=== PATIENT | male | born 1950 | race Caucasian/White ===

== ENCOUNTER 2017-01-31 21:31 | Observation (INO) ==
--- NOTE | 2017-01-31 21:51 | Emergency Department Note ---
Disposition Clinical Impression: Generalized seizure, Hyponatremia Disposition: Admitted As Inpatient Condition: Fair Referrals: Jayla Almanzar CNP [Primary Care Provider] - () Forms: ED Satisfaction Letter Seizure HPI - General Chief Complaint: ED Seizure Stated Complaint: seizure like activity Time Seen by Provider: 01/31/17 21:41 Source: patient, family, EMS Limitations: no limitations Nursing Notes Reviewed: Yes Vital Signs Reviewed: Yes - History of Present Illness HPI Narrative: Patient was heard by his with a loud abnormal breathing pattern. She states she is in the other room and he was in a chair at his computer. She found him leaning back in the chair with his eyes closed, neck extended, arms and legs extended and unresponsive. She did not see any tonic or clonic motion. He did not have incontinence or any tongue biting. He has had a history of previous seizure associated with some cancer treatment as well as with hyponatremia in the past. She called 911 and states he was coming around by the time of their arrival. He had seemed to be somewhat postictal. He has been alert and interactive for the squad for transport. The patient has no recall of anything that happened up and he felt tingling of his left hand. The patient reports that he now "just feels a little week". His volunteers that he is "okay now" and that he is basically back to his baseline. The patient denies any recent change in medications. He denies visual changes, nausea, vomiting. He has not had numbness, tingling or weakness. He denies any recent injury or fall but did fall in a [place] about 3 weeks ago. He denies any chest pain or palpitations. He does get screening CT chest and neck every 3 months as follow-up on his cancer. The studies were reported to be normal in November. Pt Subjective Complaint: seizure Onset (ago): [employer] Description of Episode: loss of consciousness, post-event confusion -: minutes(s) Witnessed: yes - by bystander Associated trauma secondary to event: No Seizure History: known seizure disorder Place: home Possible Precipitating Event: none Associated symptoms: Denies: chest pain, confusion, cough, diaphoresis, fever/ chills, loss of appetite, malaise, rash, shortness of breath, syncope, weakness Pain Scale: 0 Treatments prior to arrival: none - Related Data Home Medications Medication Instructions Recorded Confirmed Aspirin [Adult Low Dose Aspirin EC] 81 mg PO DAILY 10/11/15 01/31/17 Lactose-Reduced Food [Ensure 1 bottle PO BID 11/08/15 01/31/17 Complete] Previous Rx's Medication Instructions Recorded Folic Acid 1 mg PO DAILY #90 capsule 11/24/16 LORazepam [Ativan] 1 mg PO BID PRN #90 tablet 11/24/16 Levothyroxine [Synthroid] 75 mcg PO 0630 #30 tablet 11/24/16 Lisinopril [Zestril] 20 mg PO DAILY #90 tablet 11/24/16 Sertraline [Zoloft] 100 mg PO HS #90 tablet 11/24/16 amLODIPine [Norvasc] 5 mg PO DAILY #30 tablet 11/24/16 Famotidine [Pepcid] 20 mg PO BID #60 tablet 12/25/16 Allergies Allergy/AdvReac Type Severity Reaction Status Date / Time No Known Allergies Allergy Verified 01/31/17 21:56 All systems ED: reviewed and negative except as stated. Past Medical History - Past Medical History Attestation: Yes The following information was validated with the patient. Source: patient, obtained from family, nursing notes reviewed Medical history: Reports: arthritis, cancer, coronary artery disease, DVT, pulmonary embolus, renal disease Surgical history: Reports: carotid endarterectomy Psychiatric history: Reports: depression - Social History Smoking Status: Current every day smoker Smokeless Tobacco Status: No Alcohol use: Reports: heavy Drug use: Reports: none Physical Exam - General Limitations: no limitations General appearance: alert, in no apparent distress - Head Head exam: atraumatic, normocephalic, normal inspection - Eye Eye exam: Present: normal appearance, PERRL, EOMI. Absent: scleral icterus, conjunctival injection - ENT ENT exam: normal exam, normal oropharynx, mucous membranes moist - Neck Neck exam: Present: normal inspection, full ROM, trachea midline - Chest Chest inspection: Present: normal inspection, symmetric chest wall rise - Respiratory Respiratory exam: Present: normal lung sounds bilaterally. Absent: respiratory distress, wheezes, prolonged expiratory phase - Cardiovascular Cardiovascular exam: Present: regular rate, normal rhythm, normal heart sounds. Absent: tachycardia - Abdominal Exam Abdominal exam: Present: soft, Non-Tender, normal bowel sounds. Absent: tenderness, distention, guarding, rebound, rigidity - Extremities Exam Extremities exam: Present: normal inspection, full ROM, normal capillary refill. Absent: tenderness, pedal edema, calf tenderness - Expanded Lower Extremity Exam Neurovascular/Tendon exam: Present: normal capillary refill. Absent: motor deficit, sensory deficit, tendon deficit Gait: observed and normal - Back Exam Back exam: Present: normal inspection, full ROM. Absent: tenderness, CVA tenderness (R), CVA tenderness (L), vertebral tenderness - Neurological Exam Neurological exam: Present: alert, oriented X3, CN II-XII intact, normal gait, reflexes normal. Absent: motor sensory deficit - Psychiatric Psychiatric exam: Present: normal affect, normal mood. Absent: anxious - Skin Skin exam: Present: warm, dry, intact, normal color. Absent: diaphoresis, pallor Course Course Narrative: 2141: Discussed at Length with the Patient and Her . He Will Be Given a Dose of Ativan Orally and Will Have a Basic Lab Evaluation and a CT Head Performed. 2239: All laboratory and imaging results are discussed with the patient and family. The patient is adamant that he will be going home. He does not think he took his own dose of Ativan this evening. I discussed the need to follow-up also with family doctor as he may need neurology referral and outpatient EEG. I have discussed with him staying overnight with a saline infusion and a recheck of his laboratory in the morning. He would be able to have a row checks and availability of medication should he have recurrence of seizure. At this time he is refusing to stay and he has talking this over with family in the room. 2249: The patient's family has convinced the patient to stay for neurologic checks and some infusion of saline. Dr. Rivera has been called to assist the ongoing care of this patient inpatient. 2314: The patient's has provided additional information. He did have the hyponatremic seizure in the past also associated with possible alcohol withdrawal. He does drink heavily. Assessment taken to 32 ounce beer, whiskey and vodka each day. I have added withdrawal precautions to his admission orders as well as ordered a baseline alcohol level and hepatic functions. Patient remains in stable condition. Vital Signs Temperature 99.1 F 01/31/17 21:35 Pulse Rate 76 01/31/17 21:35 Respiratory Rate 16 01/31/17 21:35 Blood Pressure 137/69 01/31/17 21:35 O2 Sat by Pulse Oximetry 96 01/31/17 21:35 Temperature 99.1 F 01/31/17 21:35 Pulse Rate 62 01/31/17 23:08 Respiratory Rate 20 01/31/17 23:08 Blood Pressure 125/68 01/31/17 23:08 O2 Sat by Pulse Oximetry 96 01/31/17 23:08 Oxygen Delivery Oxygen Delivery Room Air Seizure - Differential Diagnosis Likely: generalized seizure - Medical Records Medical records reviewed: Yes I reviewed the patient's medical records. - Lab Data Lab results reviewed: Yes I reviewed the patient's lab results. Result diagrams: 01/31/17 21:59 01/31/17 21:59 Lab Results 01/31/17 01/31/17 01/31/17 Range/Units 21:59 21:59 21:59 WBC 5.2 (4.3-11.1) K/mcL RBC 3.22 L (4.19-5.50) M/mcL Hgb 11.2 L (12.9-16.9) g/dL Hct 30.6 L (37.5-50.1) % MCV 95.0 (83.0-100.0) fL MCH 34.8 H (28.0-33.3) pg MCHC 36.6 H (31.6-35.5) g/dL RDW 12.0 (11.5-14.5) % Plt Count 203 (140-400) K/mcL MPV 9.7 (9.4-12.4) fL Immature Gran % 1.0 (0-4) % Seg Neutrophils % 74.3 % Lymphocytes % 11.3 % Monocytes % 11.3 % Eosinophils % 1.3 % Basophils % 0.8 % Neutrophils # 3.9 (1.6-8.9) K/mcL Lymphocytes # 0.6 (0.6-4.6) K/mcL Monocytes # 0.6 (0.0-1.3) K/mcL Eosinophils # 0.1 (0.0-0.6) K/mcL Basophils # 0.0 (0.0-0.2) K/mcL PT 10.5 (9.4-12.1) Seconds INR 1.0 APTT 32.4 (26.0-36.0) Seconds Sodium 126 L (136-145) mEq/L Potassium 3.7 (3.5-4.5) mEq/L Chloride 91 L (98-109) mEq/L Carbon Dioxide 16 L (19-29) mEq/L BUN 13 (8-26) mg/dL Creatinine 1.04 (0.72-1.25) mg/dL Est GFR ( Amer) > 60 (> 60) Est GFR (Non-Af Amer) > 60 (> 60) BUN/Creatinine Ratio 13 (6-26) Glucose 82 (70-99) mg/dL Calculated Osmolality 261 L (280-300) Calcium 9.1 (8.6-10.8) mg/dL - Radiology Data Radiology results reviewed: Yes I reviewed the patient's radiology results. Impressions Head CT 01/31/17 21:46 IMPRESSION: No acute intracranial abnormality. Otherwise stable head CT. D/ / Joao Torres MD / Joao Torres MD Interpreting Provider: Joao Torres MD
[2017-01-31] MEDS ORDERED: *HR* LORazepam 1 MG TABLET PO ONE (21:55)
[2017-01-31 22:05] LABS: Basophils % 0.8 %; Eosinophils # 0.1 K/mcL (0.0-0.6); Eosinophils % 1.3 %; Hematocrit 30.6 % (37.5-50.1); Hemoglobin 11.2 g/dL (12.9-16.9); Lymphocytes # 0.6 K/mcL (0.6-4.6); Lymphocytes % 11.3 %; Mean Corpuscular HGB Conc 36.6 g/dL (31.6-35.5); Mean Corpuscular Hemoglobin 34.8 pg (28.0-33.3); Mean Platelet Volume 9.7 fL (9.4-12.4); Monocytes # 0.6 K/mcL (0.0-1.3); Monocytes % 11.3 %; Neutrophils # 3.9 K/mcL (1.6-8.9); Platelet Count 203 K/mcL (140-400); Red Blood Count 3.22 M/mcL (4.19-5.50); Segmented Neutrophils % 74.3 %
[2017-01-31 22:10] LABS: Prothrombin Time 10.5 Seconds (9.4-12.1)
[2017-01-31 22:13] LABS: Activated Partial Thrombo Time 32.4 Seconds (26.0-36.0)
[2017-01-31 22:20] LABS: BUN/Creatinine Ratio 13 (6-26); Blood Urea Nitrogen 13 mg/dL (8-26); Calcium 9.1 mg/dL (8.6-10.8); Carbon Dioxide 16 mEq/L (19-29); Chloride 91 mEq/L (98-109); Glucose 82 mg/dL (70-99); Osmolality,Calculated 261 (280-300); Potassium 3.7 mEq/L (3.5-4.5); Sodium 126 mEq/L (136-145); eGFR For African Americans > 60 (> 60); eGFR For Non-African Americans > 60 (> 60)
[2017-01-31] MEDS ORDERED: 0.9 % Sodium Chloride 1,000 ML IVC SCH (23:00)
[2017-01-31 23:37] LABS: Albumin 3.6 g/dL (3.5-5.0); Albumin/Globulin Ratio 1.2 (1.1-2.2); Bilirubin,Direct 0.1 mg/dL (0.0-0.5); Bilirubin,Indirect 0.2 mg/dL (0.0-1.2); Bilirubin,Total 0.3 mg/dL (0.2-1.2); Globulin 2.9 g/dL (2.4-3.5); Total Protein 6.5 g/dL (6.0-8.3)
[2017-01-31] MEDS: 0.9 % Sodium Chloride 1,000 ML IVC SCH (23:38)
[2017-02-01] MEDS ORDERED: Ondansetron 4 MG/2 ML VIAL IVP PRN (00:38)
[2017-02-01] MEDS ORDERED: *HR* LORazepam 1 MG TABLET PO PRN (00:38)
[2017-02-01] MEDS ORDERED: Naloxone 0.4 MG/ML INJ IVP PRN (00:38)
[2017-02-01] MEDS ORDERED: *HR* LORazepam 2 MG/ML VIAL IVP PRN (00:38)
[2017-02-01 08:50] VITALS: BP 142/74
[2017-02-01] MEDS ORDERED: Thiamine (B-1) 100 MG TABLET PO SCH (09:00)
[2017-02-01] MEDS ORDERED: Vitamin B Complex/Vit C/Vit E 1 EACH TABLET PO SCH (09:00)
[2017-02-01] MEDS ORDERED: Folic Acid 1 MG TABLET PO SCH ×2 (09:00)
[2017-02-01] MEDS ORDERED: Famotidine 20 MG TABLET PO SCH (09:00)
[2017-02-01] MEDS ORDERED: amLODIPine 5 MG TABLET PO SCH (09:00)
[2017-02-01] MEDS ORDERED: NON-FORMULARY MEDICATION 1 EACH EACH (Lactose-Reduced Food [Ensure Complete] 1 BOTTLE) PO SCH (09:00)
[2017-02-01] MEDS ORDERED: Lisinopril 20 MG TABLET PO SCH (09:00)
[2017-02-01] MEDS ORDERED: Aspirin Enteric Coated 81 MG Tablet PO SCH (09:00)
[2017-02-01 09:01] LABS: BUN/Creatinine Ratio 9 (6-26); Blood Urea Nitrogen 8 mg/dL (8-26); Calcium 9.2 mg/dL (8.6-10.8); Carbon Dioxide 23 mEq/L (19-29); Chloride 97 mEq/L (98-109); Glucose 99 mg/dL (70-99); Osmolality,Calculated 272 (280-300); Potassium 4.1 mEq/L (3.5-4.5); Sodium 132 mEq/L (136-145); eGFR For African Americans > 60 (> 60); eGFR For Non-African Americans > 60 (> 60)
[2017-02-01] MEDS: 0.9 % Sodium Chloride 1,000 ML IVC SCH (09:03)
--- NOTE | 2017-02-01 12:55 | Internal Med History&Physical ---
Date of Encounter: 02/01/17 Time of Encounter: 12:25 Assessment and Plan (1) Syncope Current visit: Yes Status: Acute Etiology undetermined. I explained to the patient and his I was not convinced that he had a seizure. He has had no previous similar episodes and feels back to his baseline now. He wishes to be discharged home. Qualifiers: Syncope type: unspecified Qualified Code(s): R55 - Syncope and collapse (2) Hyponatremia Current visit: No Status: Acute Sodium has improved to 132. Internal Medicine - H&P: HPI Chief complaint: Syncope Admitted From: Home Plans for Post Hospital Care: Home History of present illness: Mr. Diaz is a 66 year old male who was brought to emergency room after having a syncopal episode at home. His states she heard a moaning noise in the next room where he had been sitting playing a video game. She went to check on him and found him unresponsive and slid down in the chair. She had seen him 15 minutes earlier and he was asymptomatic. She states she found him moaning but gradually became more arousable. There was no loss of bowel or bladder continence. She observed no unusual posturing or jerking. The squad was called and he was brought to emergency room. He was evaluated and admitted to [facility] floor for ongoing care needs. He states he feels back to his baseline and wishes to be discharged home. He denies previous similar episodes of syncope or near syncope. He had a seizure January 2013 associated with sodium level of 119. He has had no further seizures. He has not had large distribution strokes or other neurologic problems. He drinks at least 4 cans of beer daily. Past Med Surg Social Fam HX - Past Medical History Medical history: arthritis, cancer, coronary artery disease, DVT, pulmonary embolus, renal disease, seizures Psychiatric history: depression - Past Surgical History Surgical History: carotid endarterectomy - Social History Smoking Status: Current every day smoker Packs per day: 0.5 Smokeless Tobacco Status: No Alcohol use: heavy Drug use: none Internal Medicine - H&P: Meds Aspirin [Adult Low Dose Aspirin EC] 81 mg PO DAILY 10/11/15 [History] Lactose-Reduced Food [Ensure Complete] 1 bottle PO BID 11/08/15 [History] Folic Acid 1 mg PO DAILY #90 capsule 11/24/16 [Rx] LORazepam [Ativan] 1 mg PO BID PRN #90 tablet 11/24/16 [Rx] Levothyroxine [Synthroid] 75 mcg PO 0630 #30 tablet 11/24/16 [Rx] Lisinopril [Zestril] 20 mg PO DAILY #90 tablet 11/24/16 [Rx] Sertraline [Zoloft] 100 mg PO HS #90 tablet 11/24/16 [Rx] amLODIPine [Norvasc] 5 mg PO DAILY #30 tablet 11/24/16 [Rx] Famotidine [Pepcid] 20 mg PO BID #60 tablet 12/25/16 [Rx] Allergies No Known Allergies Allergy (Verified 01/31/17 21:56) All Systems PM: A 10-system review of systems was performed and is negative for pertinent findings except as documented above in the HPI. Review of systems: Gen.: His weight has been stable past few months Cardiovascular: He has history of hypertension. He has known ASPVD and had left leg endarterectomy procedure and right leg arterial stent placed in the past. He has had right carotid endarterectomy. He had a DVT/pulmonary embolism 1980. He does not get chest pain on exertion. He denies [place] or heart failure. Respiratory: He has smoked since age 14 up to 2 packs per day. He does not wear home oxygen has not had test for COPD. GI: He denies disorders of his liver gallbladder or exocrine pancreas : Denies hematuria or dysuria or kidney stones Neurologic: As per history of present illness Endocrine: He has hypothyroidism but no known diabetes or hyperlipidemia Hematology/oncology: He was diagnosed with throat cancer September 2015. He underwent XRT and chemotherapy and has been told he is cancer free. He was found to have anemia in emergency room. Psychiatric: He takes Ativan and Zoloft but denies specific diagnosis of anxiety or depression. [place] skeletal: He has degenerative disc disease and occasional low back and knee pain. He does not have known gout. He had a mandible fracture from a fall in 1980. - Constitutional Vitals: Temp Pulse Resp BP Pulse Ox 98.3 F 59 16 142/74 97 02/01/17 07:19 02/01/17 07:19 02/01/17 07:19 02/01/17 07:19 02/01/17 07:19 Exam: Gen.: He is a well-developed well-nourished male who appears in no acute distress at present time HEENT: Head is atraumatic and normocephalic. Eyes: EOMI. There is no scleral icterus. Mouth: Mucosa is moist. Neck: He has healed scar in his right neck area from previous surgery. There is no thyromegaly or adenopathy noted. Heart: Regular without murmurs gallops or ectopics Lungs: No wheezes or crackles heard. Abdomen: Soft and nontender. No masses or guarding are noted. Extremities: There is no cyanosis edema or clubbing noted. Dorsalis pedis and posterior tibial pulses are trace to 1+ palpable bilaterally. Neurologic: Mental status: He is talkative and a good historian. Cranial nerves : Smile is symmetric. Forehead wrinkles bilaterally. Tongue protrudes midline. EOMI. Motor: There is no pronator drift. Cerebellar: Finger to nose is intact bilaterally. Skin: Warm and dry Internal Med - H&P Results - Labs CBC & Chem 7: 01/31/17 21:59 02/01/17 08:40 Labs: [facility] 02/01/17 08:40 Sodium 132 L Potassium 4.1 Chloride 97 L Carbon Dioxide 23 BUN 8 Creatinine 0.87 Glucose 99 Calcium 9.2 - VTE Documentation of Mechanical Device: Graduated compression elastic hosiery
--- NOTE | 2017-02-01 13:09 | Discharge Summary ---
Date of Encounter: 02/01/17 Time of Encounter: 12:25 - Discharge Diagnosis (1) Syncope Priority: Primary Status: Acute Qualifiers: Syncope type: unspecified Qualified Code(s): R55 - Syncope and collapse (2) Hyponatremia Priority: Secondary Status: Acute - Discharge Medications Home Medications: Aspirin [Adult Low Dose Aspirin EC] 81 mg PO DAILY 10/11/15 [History] Lactose-Reduced Food [Ensure Complete] 1 bottle PO BID 11/08/15 [History] Folic Acid 1 mg PO DAILY #90 capsule 11/24/16 [Rx] LORazepam [Ativan] 1 mg PO BID PRN #90 tablet 11/24/16 [Rx] Levothyroxine [Synthroid] 75 mcg PO 0630 #30 tablet 11/24/16 [Rx] Lisinopril [Zestril] 20 mg PO DAILY #90 tablet 11/24/16 [Rx] Sertraline [Zoloft] 100 mg PO HS #90 tablet 11/24/16 [Rx] amLODIPine [Norvasc] 5 mg PO DAILY #30 tablet 11/24/16 [Rx] Famotidine [Pepcid] 20 mg PO BID #60 tablet 12/25/16 [Rx] Allergies/Adverse Reactions: Allergies No Known Allergies Allergy (Verified 01/31/17 21:56) Date of admission: 02/01/17 00:13 Primary care physician: Jayla Almanzar CNP - Patient Status Disposition: Home, Self-Care Condition: Fair Functional capacity at discharge: independent ambulation Overall status at discharge: patient is progressing back to baseline - Discharge Instructions Follow Up With: Jayla Almanzar CNP [Primary Care Provider] - 1 week - Diet and Activity Activity: resume usual activities as tolerated Diet: advance to your usual diet Hospital course: Mr. Diaz is a 66 year old male who was brought to emergency room after having a syncopal episode at home. His states she heard a moaning noise in the next room where he had been sitting playing a video game. She went to check on him and found him unresponsive and slid down in the chair. She had seen him 15 minutes earlier and he was asymptomatic. She states she found him moaning but gradually became more arousable. There was no loss of bowel or bladder continence. She observed no unusual posturing or jerking. The squad was called and he was brought to emergency room. He was evaluated and admitted to [facility] for ongoing care needs. Initial orders were written by the emergency room physician. I saw him the afternoon of February 01 and performed the history physical and discharge. He had no further syncopal or near-syncopal episodes. He felt back to his baseline when I saw him and he wished to be discharged home. Repeat labs February 01 showed sodium improved to 132. His carbon dioxide level had normalized to 23. He was instructed to follow with his PCP Jayla Almanzar CNP within 1 week. I encouraged him strongly to discontinue alcohol and tobacco use. - Time Spent with Patient Total time spent providing and/or coordinating discharge services: - Constitutional Vitals: Temp Pulse Resp BP Pulse Ox 98.3 F 59 16 142/74 97 02/01/17 07:19 02/01/17 07:19 02/01/17 07:19 02/01/17 07:19 02/01/17 07:19 - VTE Documentation of Mechanical Device: Graduated compression elastic hosiery
== END 2017-02-01 13:32 | disposition home or self-care (01) ==
LOC: EMEROOPIK 21:31 → INPPIK 21:31
PROVIDERS: ADMIT Internal Medicine; ATTEND Internal Medicine

== ENCOUNTER 2018-11-29 12:36 | Observation (INO) ==
--- NOTE | 2018-11-29 12:39 | Emergency Department Note ---
Disposition Clinical Impression: Acute renal insufficiency, Hyponatremia, Generalized weakness Right lower lobe pneumonia Qualifiers: Pneumonia type: due to unspecified organism Qualified Code(s): J18.1 - Lobar pneumonia, unspecified organism Disposition: Admitted As Inpatient Condition: Fair Referrals: Ruperto Dong DO [Primary Care Provider] - Forms: ED Satisfaction Letter URI/Sore Throat HPI - General Chief Complaint: ED Upper Respiratory Infection Stated Complaint: Cough for three weeks . Fever today Time Seen by Provider: 11/29/18 12:47 Source: patient, family Mode of arrival: private vehicle Limitations: no limitations Nursing Notes Reviewed: Yes Vital Signs Reviewed: Yes - History of Present Illness HPI Narrative: Patient reports that he has had a cough for about 3 weeks. This started after he had a routine doctor's appointment. Cough has been productive of some white phlegm. He denies any dyspnea or dyspnea on exertion. Congestion seems a little worse at night. Today he was in bed and covered up and appeared that his forehead was sweaty. He checked his temperature and had a reading of 100.8. The decision was made to come to the emergency department at that time. He has not been having chest pain beyond he says some right lateral chest discomfort with coughing. Denies shortness of breath, wheezing or any lower extremity swelling or pains. He said some weakness and a loss of appetite. He has had decreased oral intake for couple days. He does not note any specific ill exposures. Denies abdominal pain, nausea or diarrhea. His was concerned of possible pneumonia. Pt Subjective Complaint: fever, cough Onset (ago): week(s) (3) Duration: gradually worsening Severity: moderate Improves with: rest Worsens with: night If sputum, description: other (White) Associated symptoms: Reports: fever, chills, diaphoresis, cough, chest pain ( Right side with cough). Denies: voice changes, myalgias, headache, rhinorrhea, nasal congestion, sore throat, stiff neck, shortness of breath, abdominal pain, nausea, vomiting, diarrhea, dysuria, rash, epistaxis, ear pain Treatments prior to arrival: "cold medicine" - Related Data Home Medications Medication Instructions Recorded Confirmed Aspirin [Adult Low Dose Aspirin EC] 81 mg PO DAILY 10/11/15 06/15/18 LORazepam [Ativan] 1 mg PO DAILY 09/14/17 06/15/18 Metoprolol [Lopressor] 25 mg PO BID 06/15/18 06/15/18 Previous Rx's Medication Instructions Recorded Folic Acid 1 mg PO DAILY #90 capsule 11/24/16 Lisinopril [Zestril] 20 mg PO DAILY #90 tablet 11/24/16 Famotidine [Pepcid] 20 mg PO BID #60 tablet 12/25/16 Levothyroxine [Synthroid] 75 mcg PO 0630 #30 tablet 07/23/17 Allergies Allergy/AdvReac Type Severity Reaction Status Date / Time No Known Allergies Allergy Verified 12/14/17 10:13 All systems ED: reviewed and negative except as stated. URI PMH - Past Medical History Medical history: Reports: arthritis, cancer (Head and neck), coronary artery disease, DVT, hypertension, peripheral artery disease, pulmonary embolus, renal disease, seizures Surgical history: Reports: carotid endarterectomy, other (Infusion port) Psychiatric history: Reports: depression - Social History Smoking Status: Current every day smoker Alcohol use: Reports: heavy Drug use: Reports: none Physical Exam - General Limitations: no limitations General appearance: alert, in no apparent distress - Head Head exam: atraumatic, normocephalic, normal inspection - Eye Eye exam: Present: normal appearance, PERRL, EOMI. Absent: conjunctival injection - ENT ENT exam: normal exam, normal oropharynx, mucous membranes moist - Neck Neck exam: Present: normal inspection, full ROM, trachea midline - Chest Chest inspection: Present: normal inspection, symmetric chest wall rise - Respiratory Respiratory exam: Present: normal lung sounds bilaterally. Absent: respiratory distress, wheezes, accessory muscle use, prolonged expiratory phase - Cardiovascular Cardiovascular exam: Present: regular rate, normal rhythm, normal heart sounds. Absent: tachycardia - Abdominal Exam Abdominal exam: Present: soft, Non-Tender, normal bowel sounds. Absent: tenderness, distention, guarding, rebound, rigidity - Extremities Exam Extremities exam: Present: normal inspection, full ROM, normal capillary refill. Absent: tenderness, pedal edema, calf tenderness - Expanded Lower Extremity Exam Neurovascular/Tendon exam: Present: normal capillary refill. Absent: motor deficit, sensory deficit, tendon deficit Gait: observed and normal - Neurological Exam Neurological exam: Present: alert, oriented X3 - Psychiatric Psychiatric exam: Present: normal affect, normal mood - Skin Skin exam: Present: warm, dry, intact, normal color. Absent: cyanosis, diaphoresis, pallor Course Course Narrative: 1335: Care is been discussed with Dr. Reyes. Given the patient's hyponatremia, renal insufficiency and pneumonia, he does request he be observed in the hospital. He agreed the patient will be likely to be against this and he will follow-up in the office if he refuses admission. A page has been placed to Dr. Rivera for observation. 1400: Care has been discussed with Dr. Rivera. Verbal orders have been obtained for the patient's admission. We are waiting placement to a bed on the floor prior to taking him to inpatient care. Vital Signs Temperature 98.8 F 11/29/18 12:38 Pulse Rate 88 11/29/18 12:38 Respiratory Rate 18 11/29/18 12:38 Blood Pressure 124/72 11/29/18 12:38 O2 Sat by Pulse Oximetry 91 11/29/18 12:38 Temperature 98.8 F 11/29/18 12:38 Pulse Rate 88 11/29/18 12:38 Respiratory Rate 18 11/29/18 12:38 Blood Pressure 124/72 11/29/18 12:38 O2 Sat by Pulse Oximetry 91 11/29/18 12:38 Oxygen Delivery Oxygen Delivery Room Air Upper Respiratory Infection - Differential Diagnosis Differential Diagnosis: Likely: upper respiratory infection, other viral infection, bronchitis, pneumonia - Lab Data Lab results reviewed: Yes I reviewed the patient's lab results. Result diagrams: 11/29/18 13:04 11/29/18 13:04 Lab Results 11/29/18 11/29/18 Range/Units 13:04 13:04 WBC 18.1 H (4.3-11.1) K/mcL RBC 3.47 L (4.19-5.50) M/mcL Hgb 12.4 L (12.9-16.9) g/dL Hct 34.7 L (37.5-50.1) % MCV 100.0 (83.0-100.0) fL MCH 35.7 H (28.0-33.3) pg MCHC 35.7 H (31.6-35.5) g/dL RDW 11.5 (11.5-14.5) % Plt Count 323 (140-400) K/mcL MPV 9.3 L (9.4-12.4) fL Immature Gran % 1.8 (0-4) % Seg Neutrophils % 88.3 % Lymphocytes % 2.0 % Monocytes % 7.3 % Eosinophils % 0.0 % Basophils % 0.6 % Neutrophils # 16.0 H (1.6-8.9) K/mcL Lymphocytes # 0.4 L (0.6-4.6) K/mcL Monocytes # 1.3 (0.0-1.3) K/mcL Eosinophils # 0.0 (0.0-0.6) K/mcL Basophils # 0.1 (0.0-0.2) K/mcL Sodium 123 L (136-145) mEq/L Potassium 3.7 (3.5-5.1) mEq/L Chloride 84 L (98-107) mEq/L Carbon Dioxide 30 H (23-29) mEq/L BUN 38 H (8-23) mg/dL Creatinine 1.50 H (0.70-1.30) mg/dL Est GFR ( Amer) 57 L (> 60) Est GFR (Non-Af Amer) 47 L (> 60) BUN/Creatinine Ratio 25 (6-26) Glucose 109 H (70-105) mg/dL Calculated Osmolality 266 L (280-300) Calcium 9.4 (8.6-10.3) mg/dL - Radiology Data Radiology results reviewed: Yes I reviewed the patient's radiology results. Single view chest x-rays performed. This shows a consolidated infiltrate in the right middle lobe and other patchy area in the right lower lobe. Does see evidence for pneumothorax, heart failure or effusion. Cardiac silhouette appears normal. This is on my interpretation. Impressions Chest X-Ray 11/29/18 12:50 IMPRESSION: Airspace changes in the right middle lobe suspected to represent developing pneumonia. D/ / Calin Hardy MD / Calin Hardy MD Interpreting Provider: Calin Hardy MD
[2018-11-29 13:16] LABS: Basophils # 0.1 K/mcL (0.0-0.2); Basophils % 0.6 %; Hematocrit 34.7 % (37.5-50.1); Hemoglobin 12.4 g/dL (12.9-16.9); Immature Granulocytes % 1.8 % (0-4); Lymphocytes # 0.4 K/mcL (0.6-4.6); Mean Corpuscular HGB Conc 35.7 g/dL (31.6-35.5); Mean Corpuscular Hemoglobin 35.7 pg (28.0-33.3); Mean Platelet Volume 9.3 fL (9.4-12.4); Monocytes # 1.3 K/mcL (0.0-1.3); Monocytes % 7.3 %; Platelet Count 323 K/mcL (140-400); Red Blood Count 3.47 M/mcL (4.19-5.50); Red Cell Distribution Width 11.5 % (11.5-14.5); Segmented Neutrophils % 88.3 %
[2018-11-29 13:30] LABS: Calcium 9.4 mg/dL (8.6-10.3); Potassium 3.7 mEq/L (3.5-5.1)
[2018-11-29] MEDS ORDERED: Azithromycin 500 MG in D5% in Water 250 ML IVPB ONE (13:51)
[2018-11-29] MEDS ORDERED: 0.9 % Sodium Chloride 1,000 ML IVC ONE (13:51)
[2018-11-29] MEDS ORDERED: cefTRIAXone 2,000 MG in 0.9 % Sodium Chloride Mini Bag 100 ML IVPB ONE (13:51)
[2018-11-29] MEDS ORDERED: 0.9 % Sodium Chloride 1,000 ML IVC SCH ×2 (14:00→15:14)
[2018-11-29] MEDS ORDERED: MOM Conc 10 ML UD.LIQ PO PRN (15:14)
[2018-11-29] MEDS ORDERED: Albuterol 2.5 MG/3 ML NEBULIZER IH PRN (15:14)
[2018-11-29] MEDS ORDERED: Mag Hydrox/Al Hydrox/Simeth 30 ML UDC PO PRN (15:14)
[2018-11-29] MEDS ORDERED: Ondansetron ODT 4 MG TAB.RAPDIS SL PRN (15:14)
[2018-11-29] MEDS ORDERED: Naloxone 0.4 MG/ML INJ IVP PRN (15:14)
[2018-11-29] MEDS ORDERED: Ipratropium/Albuterol Neb 3 ML IH SCH (16:00)
[2018-11-29] MEDS: Nicotine 21 MG PATCH.TD24 TD SCH (16:55)
--- NOTE | 2018-11-29 18:19 | Internal Med History&Physical ---
Date of Encounter: 11/29/18 Time of Encounter: 17:45 Assessment and Plan (1) Right middle lobe pneumonia Current visit: Yes Status: Acute He was started on Rocephin and Zithromax in emergency room. Continue these with lactobacillus. Qualifiers: Pneumonia type: due to unspecified organism Qualified Code(s): J18.1 - Lobar pneumonia, unspecified organism (2) Anemia Current visit: Yes Status: Acute Will order anemia testing in a.m. Qualifiers: Anemia type: unspecified type Qualified Code(s): D64.9 - Anemia, unspecified (3) Acute renal insufficiency Current visit: Yes Status: Acute Likely due to dehydration. IV fluids have been ordered. Recheck labs in a.m. (4) Anxiety Current visit: No Status: Acute Continue scheduled Ativan. (5) Weight loss Current visit: No Status: Acute Check TSH in a.m. IV fluids have been ordered. Weight will be monitored. 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 Recheck labs in a.m. (7) Hypothyroidism Current visit: No Status: Chronic Check TSH in a.m. Qualifiers: Hypothyroidism type: unspecified Qualified Code(s): E03.9 - Hypothyroidism, unspecified Internal Medicine - H&P: HPI Chief complaint: Cough and weakness Admitted From: Emergency Dept Plans for Post Hospital Care: Home History of present illness: Mr. Diaz is a 68 year old male who came to emergency room at his 's insistence because of cough with increasing weakness onset 3 weeks earlier. He denies hemoptysis. He states the cough was productive of white and occasional yellowish sputum. He has had myalgias, diaphoresis, and fever. He denies vomiting or diarrhea. He was evaluated in emergency room and was found to have right middle lobe pneumonia. He was admitted to [facility] floor for ongoing care needs. Respiratory history is significant for having smoked since age 14-2 packs per day. He does not use home oxygen and has not had PFTs. Past Med Surg Social Fam HX - Past Medical History Medical history: arthritis, cancer, coronary artery disease, DVT, hypertension, peripheral artery disease, pulmonary embolus, renal disease, seizures Additional medical history: right internal carotid artery stenosis,peripheral vascular disease,bilat knee and leg pain,chronic low back pain,actinic keratoses,squamous cell carcinoma of neck,laryngeal lesion Psychiatric history: depression - Past Surgical History Surgical History: carotid endarterectomy, other Additional surgical history: Bilateral legs and neck - Social History Smoking Status: Current every day smoker Packs per day: 1 pack a day Smokeless Tobacco Status: No Alcohol use: heavy Drug use: none - Family History Mother Adopted: No Age: 74 Family Member Ethnicity: Non- Living Status: Hx Family Cardiac Disorders: Yes (mother of an ME) Hx Family Respiratory Disorders: No Hx Family Cancer: No Hx Family GI Disorders: No Hx Family Genitourinary Disorders: No Hx Family Endocrine Disorder: No Hx Family Musculoskeletal Disorders: No Hx Family Neuromuscular Disorders: No Hx Family Neurologic Disorders: No Hx Family HEENT Disorders: No Hx Family Autoimmune Disorders: No Hx Family Reproductive Disorders: No Hx Family Psychosocial Disorders: No Hx Family Medical Disorders: No Internal Medicine - H&P: Meds Aspirin [Adult Low Dose Aspirin EC] 81 mg PO DAILY 10/11/15 [History] Lisinopril [Zestril] 20 mg PO DAILY #90 tablet 11/24/16 [Rx] Famotidine [Pepcid] 20 mg PO BID #60 tablet 12/25/16 [Rx] Levothyroxine [Synthroid] 75 mcg PO 0630 #30 tablet 07/23/17 [Rx] LORazepam [Ativan] 1 mg PO DAILY 09/14/17 [History] Metoprolol [Lopressor] 25 mg PO BID 06/15/18 [History] Folic Acid 1 mg PO HS 11/29/18 [History] Allergy/AdvReac Type Severity Reaction Status Date / Time No Known Allergies Allergy Verified 12/14/17 10:13 All Systems PM: A 10-system review of systems was performed and is negative for pertinent findings except as documented above in the HPI. Review of systems: Review of systems from his January 2017 [facility] hospitalization were reviewed and revised as below. Gen.: His weight has decreased from 66.361 kg on 02/01/2017 to present weight of 60.781 kg. Cardiovascular: He has history of hypertension. He has known ASPVD and had left leg endarterectomy procedure and right leg arterial stent placed in the past. He has had right carotid endarterectomy. He had a DVT/pulmonary embolism 1980. He does not get chest pain on exertion. He denies ME or heart failure. Respiratory: As per history of present illness GI: He denies disorders of his liver gallbladder or exocrine pancreas : Denies hematuria or dysuria or kidney stones Neurologic: He was hospitalized January 2017 [facility] with a syncopal episode. Etiology was not discovered. He had a near syncopal episode several weeks ago while in the car. The squad was called but the patient refused to come to emergency room. His reports this was after an osteopathic maneuver was done by his PCP and EMS personnel thought it might of been a vagal reaction. He had a seizure January 2013 associated with sodium level of 119. He has had no further seizures. He has not had large distribution strokes or other neurologic problems. Endocrine: He has hypothyroidism but no known diabetes or hyperlipidemia Hematology/oncology: He was diagnosed with throat cancer September 2015. He underwent XRT and chemotherapy and has been told he is cancer free. He has had anemia on most labs since October 2015. Psychiatric: He takes Ativan for anxiety. He has used Zoloft in the past for depression but chose to discontinue this. [place] skeletal: He has degenerative disc disease and occasional low back and knee pain. He does not have known gout. He had a mandible fracture from a fall in 1980. - Constitutional Vitals: Temp Pulse Resp BP Pulse Ox 98.8 F 89 13 123/76 94 11/29/18 12:38 11/29/18 15:20 11/29/18 16:13 11/29/18 15:20 11/29/18 16:13 Exam: Gen.: He is a well-developed well-nourished male lying in bed who appears in no acute distress HEENT: Head is atraumatic and normocephalic. Eyes: EOMI. There is no scleral icterus. Mouth: Mucosa is moist. Neck: Supple and nontender. There is no thyromegaly or adenopathy noted. Heart: Regular without murmurs gallops or ectopics Lungs: No wheezes or crackles are heard. Abdomen: Soft and nontender. No masses or guarding are noted. Extremities: There is no cyanosis edema or clubbing noted. Dorsalis pedis and posttibial pulses are 1-2 over 2 bilaterally. Neurologic: Mental status: He is talkative and a good historian. Cranial nerves: Smile is symmetric. Forehead wrinkle bilaterally. Tongue protrudes midline. EOMI. Motor: There is no pronator drift. Cerebellar: Finger to nose is intact bilaterally. Skin: Warm and dry Internal Med - H&P Results - Labs CBC & Chem 7: 11/29/18 13:04 11/29/18 13:04 Labs: Short CBC 11/29/18 Range/Units 13:04 WBC 18.1 H (4.3-11.1) K/mcL Hgb 12.4 L (12.9-16.9) g/dL Hct 34.7 L (37.5-50.1) % Plt Count 323 (140-400) K/mcL Neutrophils # 16.0 H (1.6-8.9) K/mcL BMP 11/29/18 13:04 Sodium 123 L Potassium 3.7 Chloride 84 L Carbon Dioxide 30 H BUN 38 H Creatinine 1.50 H Glucose 109 H Calcium 9.4 - Impressions ITS Impressions Chest X-Ray 11/29/18 12:50 IMPRESSION: Airspace changes in the right middle lobe suspected to represent developing pneumonia. D/ / Calin Hardy MD / Calin Hardy MD Interpreting Provider: Calin Hardy MD
[2018-11-29] MEDS: Famotidine 20 MG TABLET PO SCH (19:39)
[2018-11-29] MEDS: Lactobacillus 1 EACH CAP.SPRINK PO SCH (19:39)
[2018-11-29] MEDS: 0.9 % Sodium Chloride w KCl 20 MEQ/1,000 ML MLS IVC SCH (19:45)
[2018-11-29] MEDS ORDERED: Folic Acid 1 MG TABLET PO SCH (21:00)
[2018-11-30] MEDS: 0.9 % Sodium Chloride w KCl 20 MEQ/1,000 ML MLS IVC SCH ×2 (03:44→12:01)
[2018-11-30 06:07] LABS: Basophils % 0.3 %; Eosinophils % 0.1 %; Hematocrit 29.8 % (37.5-50.1); Hemoglobin 10.6 g/dL (12.9-16.9); Immature Granulocytes % 1.2 % (0-4); Lymphocytes # 0.5 K/mcL (0.6-4.6); Lymphocytes % 3.3 %; Mean Corpuscular HGB Conc 35.6 g/dL (31.6-35.5); Mean Corpuscular Hemoglobin 35.7 pg (28.0-33.3); Mean Corpuscular Volume 100.3 fL (83.0-100.0); Mean Platelet Volume 9.6 fL (9.4-12.4); Monocytes % 6.7 %; Neutrophils # 12.7 K/mcL (1.6-8.9); Platelet Count 289 K/mcL (140-400); Red Blood Count 2.97 M/mcL (4.19-5.50); Red Cell Distribution Width 11.4 % (11.5-14.5); Segmented Neutrophils % 88.4 %
[2018-11-30 06:43] VITALS: BP 158/80
[2018-11-30 06:44] LABS: Alanine Aminotransferase 63 Units/L (7-52); Albumin 2.8 g/dL (3.5-5.7); Albumin/Globulin Ratio 0.9 (1.1-2.2); Alkaline Phosphatase 74 Units/L (34-104); Aspartate Amino Transferase 116 Units/L (13-39); BUN/Creatinine Ratio 32 (6-26); Bilirubin,Total 0.4 mg/dL (0.3-1.0); Blood Urea Nitrogen 33 mg/dL (8-23); Calcium 8.3 mg/dL (8.6-10.3); Carbon Dioxide 25 mEq/L (23-29); Chloride 95 mEq/L (98-107); Glucose 98 mg/dL (70-105); Osmolality,Calculated 273 (280-300); Potassium 3.8 mEq/L (3.5-5.1); Sodium 128 mEq/L (136-145); Total Protein 5.8 g/dL (6.4-8.9); eGFR For Non-African Americans > 60 (> 60)
[2018-11-30 06:54] LABS: Thyroid Stimulating Hormone 3.937 mcIU/mL (0.340-5.600)
[2018-11-30 08:44] LABS: % Iron Saturation 19 % (20-55); Iron 26 mcg/dL (65-175); Transferrin 100 mg/dL (203-362)
[2018-11-30] MEDS: Lactobacillus 1 EACH CAP.SPRINK PO SCH (08:51)
[2018-11-30] MEDS: Famotidine 20 MG TABLET PO SCH (08:51)
[2018-11-30] MEDS: Nicotine 21 MG PATCH.TD24 TD SCH (08:52)
[2018-11-30] MEDS ORDERED: Aspirin Enteric Coated 81 MG Tablet PO SCH (09:00)
[2018-11-30] MEDS ORDERED: Lisinopril 20 MG TABLET PO SCH (09:00)
[2018-11-30] MEDS ORDERED: *HR* LORazepam 1 MG TABLET PO SCH (09:00)
[2018-11-30 09:20] LABS: Ferritin > 1500 ng/mL (20-250)
[2018-11-30 09:21] LABS: Folate > 22.3 ng/mL (3.0-16.0); Vitamin B12 1170 pg/mL (250-1100)
--- NOTE | 2018-11-30 09:55 | Discharge Summary ---
Orders not resulted at time of discharge: Pending orders 11/29/18 14:25 Culture,Blood [] Stat Date of Encounter: 11/30/18 Time of Encounter: 09:45 - Discharge Diagnosis (1) Right middle lobe pneumonia Priority: Primary Status: Acute Qualifiers: Pneumonia type: due to unspecified organism Qualified Code(s): J18.1 - Lobar pneumonia, unspecified organism (2) Anemia Priority: Secondary Status: Acute Qualifiers: Anemia type: unspecified type Qualified Code(s): D64.9 - Anemia, unspecified (3) Acute renal insufficiency Priority: Secondary Status: Acute (4) Anxiety Priority: Secondary Status: Acute (5) Weight loss Priority: Secondary Status: Acute (6) Hyponatremia Priority: Secondary Status: Acute (7) Hypothyroidism Priority: Secondary Status: Chronic Qualifiers: Hypothyroidism type: unspecified Qualified Code(s): E03.9 - Hypothyroidism, unspecified Hospital course: Mr. Diaz is a 68 year old male who came to emergency room at his 's insistence because of cough with increasing weakness onset 3 weeks earlier. He denies hemoptysis. He states the cough was productive of white and occasional yellowish sputum. He has had myalgias, diaphoresis, and fever. He denies vomiting or diarrhea. He was evaluated in emergency room and was found to have right middle lobe pneumonia. He was admitted to [facility] floor for ongoing care needs. Initial orders were written by the emergency room physician. I saw him on November 29 and performed a history and physical. He was started on IV Rocephin and Zithromax in emergency room. Lactobacillus was added. He had good clinical response and remained afebrile during his hospital stay. WBC decreased to 14.4 by the following day. He felt clinically improved and stable for discharge home. He will continue with antibiotic and probiotic for 5 additional days at discharge. Room air oximetry will be checked on 6 minute walk prior to discharge. I encouraged him to become a nonsmoker. Anemia testing showed iron 26, transferrin saturation 19%, transferrin 100, ferritin > 1500, B12 1170, and folate > 22.3. Hemoglobin decreased to 10.6 with IV fluid administration. His PCP can monitor. TSH returned normal at 3.937. Sodium improved to 128 with normal saline IV. I suspect hyponatremia is due to SIADH. His PCP can continue to monitor labs. On November 30 he felt improved and wished to be discharged home. I offered him staying another day in the hospital but he felt he could recover adequately at home. He will follow with his PCP Dr. Dong within 1 week. - Time Spent with Patient Total time spent providing and/or coordinating discharge services: - Discharge Medications Prescriptions: New Cefuroxime PO [Ceftin] 500 mg PO Q12HR #10 tablet Azithromycin [Zithromax] 250 mg PO DAILY #5 tablet Lactobacillus [Culturelle] 1 each PO BID #10 cap.sprink Continue Aspirin [Adult Low Dose Aspirin EC] 81 mg PO DAILY Lisinopril [Zestril] 20 mg PO DAILY #90 tablet Famotidine [Pepcid] 20 mg PO BID #60 tablet Levothyroxine [Synthroid] 75 mcg PO 0630 #30 tablet LORazepam [Ativan] 1 mg PO DAILY Metoprolol [Lopressor] 25 mg PO BID Folic Acid 1 mg PO HS Home Medications: Aspirin [Adult Low Dose Aspirin EC] 81 mg PO DAILY 10/11/15 [History] Lisinopril [Zestril] 20 mg PO DAILY #90 tablet 11/24/16 [Rx] Famotidine [Pepcid] 20 mg PO BID #60 tablet 12/25/16 [Rx] Levothyroxine [Synthroid] 75 mcg PO 0630 #30 tablet 07/23/17 [Rx] LORazepam [Ativan] 1 mg PO DAILY 09/14/17 [History] Metoprolol [Lopressor] 25 mg PO BID 06/15/18 [History] Folic Acid 1 mg PO HS 11/29/18 [History] Azithromycin [Zithromax] 250 mg PO DAILY #5 tablet 11/30/18 [Rx] Cefuroxime PO [Ceftin] 500 mg PO Q12HR #10 tablet 11/30/18 [Rx] Lactobacillus [Culturelle] 1 each PO BID #10 cap.sprink 11/30/18 [Rx] Allergies/Adverse Reactions: Allergy/AdvReac Type Severity Reaction Status Date / Time No Known Allergies Allergy Verified 12/14/17 10:13 Date of admission: 11/29/18 15:03 Primary care physician: Ruperto Dong, DO - Constitutional Vitals: Temp Pulse Resp BP Pulse Ox 98.4 F 67 16 158/80 94 11/30/18 06:39 11/30/18 06:39 11/30/18 06:39 11/30/18 06:39 11/30/18 06:39 - Patient Status Disposition: Home, Self-Care Condition: Fair - Discharge Instructions Follow Up With: Ruperto Dong DO [Primary Care Provider] - 1 week - Diet and Activity Activity: resume usual activities as tolerated Diet: advance to your usual diet
[2018-11-30] MEDS ORDERED: Azithromycin 250 MG TABLET PO ONE (14:19)
[2018-11-30] MEDS ORDERED: cefTRIAXone 2,000 MG in Water for inj. (sterile) 20 ML 20 ML IVPB SCH (15:00)
== END 2018-11-30 13:35 | disposition home or self-care (01) ==
LOC: INPPIK 12:36 → EMEROOPIK 12:36 → INPPIK 15:25
PROVIDERS: ADMIT Internal Medicine; ATTEND Internal Medicine

== ENCOUNTER 2020-05-02 12:14 | Inpatient (IN) ==
[2020-05-02] MEDS ORDERED: 0.9 % Sodium Chloride 1,000 ML IV ONE ×2 (12:53→14:10)
[2020-05-02 13:06] LABS: Basophils % 0.4 %; Hematocrit 31.3 % (37.5-50.1); Hemoglobin 11.2 g/dL (12.9-16.9); Immature Granulocytes % 0.5 % (0-4); Lymphocytes # 0.4 K/mcL (0.6-4.6); Lymphocytes % 4.8 %; Mean Corpuscular HGB Conc 35.8 g/dL (31.6-35.5); Mean Corpuscular Hemoglobin 34.5 pg (28.0-33.3); Mean Corpuscular Volume 96.3 fL (83.0-100.0); Mean Platelet Volume 9.7 fL (9.4-12.4); Monocytes # 0.8 K/mcL (0.0-1.3); Monocytes % 8.5 %; Neutrophils # 7.9 K/mcL (1.6-8.9); Platelet Count 239 K/mcL (140-400); Red Blood Count 3.25 M/mcL (4.19-5.50); Red Cell Distribution Width 12.2 % (11.5-14.5); Segmented Neutrophils % 85.8 %; White Blood Count 9.3 K/mcL (4.3-11.1)
[2020-05-02 13:27] LABS: Alanine Aminotransferase 24 Units/L (7-52); Albumin 3.7 g/dL (3.5-5.7); Albumin/Globulin Ratio 1.1 (1.1-2.2); Alkaline Phosphatase 74 Units/L (34-104); Aspartate Amino Transferase 36 Units/L (13-39); BUN/Creatinine Ratio 22 (6-26); Blood Urea Nitrogen 28 mg/dL (8-23); Carbon Dioxide 27 mEq/L (23-29); Chloride 85 mEq/L (98-107); Ethanol 175 mg/dL (Less than 10); Globulin 3.3 g/dL (2.4-3.5); Glucose 84 mg/dL (70-105); Magnesium 1.4 mg/dL (1.6-2.6); Osmolality,Calculated 263 (280-300); Potassium 3.8 mEq/L (3.5-5.1); Sodium 124 mEq/L (136-145); Troponin I < 0.03 ng/mL (< 0.04); eGFR For African Americans > 60 (> 60); eGFR For Non-African Americans 57 (> 60)
[2020-05-02 13:29] LABS: INR 0.9; Prothrombin Time 10.5 Seconds (9.4-12.1)
[2020-05-02 14:02] LABS: Bilirubin,Urine Negative (Negative); Blood,Urine Negative (Negative); Clarity,Urine Clear (Clear); Color,Urine Yellow (Yellow); Glucose,Urine (UA) Normal (Normal); Ketones,Urine Negative (Negative); Leukocyte Esterase,Urine Negative (Negative); Nitrite,Urine Negative (Negative); Protein,Urine 30 mg/dL (Neg-Trace); Specific Gravity,Urine <= 1.005 (1.010-1.025); Urobilinogen,Urine Normal (Normal)
[2020-05-02 14:09] LABS: Squamous Epithelial Cell,Urine Few per hpf (None-Few); WBC,Urine 0-3 per hpf (0-3)
[2020-05-02] MEDS ORDERED: Isovue-370 500 ML BOTTLE IVP ONE (14:09)
[2020-05-02 14:10] LABS: Hyaline Casts,Urine Few per lpf (None Seen)
[2020-05-02 14:11] LABS: Amphetamine Screen,Urine Negative ng/mL (Cutoff=1000); Barbiturate Screen,Urine Negative ng/mL (Cutoff=200); Benzodiazepines Screen,Urine Negative ng/mL (Cutoff=200); Cannabinoid Screen,Urine Negative ng/mL (Cutoff = 50); Cocaine Screen,Urine Negative ng/mL (Cutoff= 300); Opiate Screen,Urine Negative ng/mL (Cutoff=300); Phencyclidine Screen,Urine Negative ng/mL (Cutoff=25)
[2020-05-02] MEDS ORDERED: Naloxone 0.4 MG/ML INJ IVP PRN (15:26)
[2020-05-02] MEDS ORDERED: Acetaminophen 325 MG TABLET PO PRN (15:26)
[2020-05-02] MEDS: Nicotine 14 MG PATCH.TD24 TD SCH (16:54)
[2020-05-02] MEDS: 0.9 % Sodium Chloride 1,000 ML IVC SCH (16:58)
[2020-05-02 18:22] LABS: BUN/Creatinine Ratio 22 (6-26); Blood Urea Nitrogen 24 mg/dL (8-23); Calcium 8.5 mg/dL (8.6-10.3); Carbon Dioxide 26 mEq/L (23-29); Chloride 91 mEq/L (98-107); Glucose 84 mg/dL (70-105); Osmolality,Calculated 269 (280-300); Potassium 3.6 mEq/L (3.5-5.1); Sodium 128 mEq/L (136-145); eGFR For African Americans > 60 (> 60); eGFR For Non-African Americans > 60 (> 60)
[2020-05-02] MEDS: Thiamine (B-1) 100 MG, Folic Acid 1 MG, MVI, adult with vitamin K 10 ML in 0.9 % Sodi... IVPB SCH (18:30)
[2020-05-03 00:29] LABS: BUN/Creatinine Ratio 19 (6-26); Blood Urea Nitrogen 19 mg/dL (8-23); Calcium 8.2 mg/dL (8.6-10.3); Carbon Dioxide 27 mEq/L (23-29); Chloride 91 mEq/L (98-107); Glucose 81 mg/dL (70-105); Osmolality,Calculated 267 (280-300); Potassium 3.7 mEq/L (3.5-5.1); Sodium 128 mEq/L (136-145); eGFR For African Americans > 60 (> 60); eGFR For Non-African Americans > 60 (> 60)
[2020-05-03] MEDS: 0.9 % Sodium Chloride 1,000 ML IVC SCH ×2 (03:00→13:00)
[2020-05-03 05:40] LABS: Hematocrit 28.4 % (37.5-50.1); Hemoglobin 10.1 g/dL (12.9-16.9); Mean Corpuscular HGB Conc 35.6 g/dL (31.6-35.5); Mean Corpuscular Hemoglobin 34.1 pg (28.0-33.3); Mean Corpuscular Volume 95.9 fL (83.0-100.0); Platelet Count 236 K/mcL (140-400); Red Blood Count 2.96 M/mcL (4.19-5.50); Red Cell Distribution Width 12.1 % (11.5-14.5); White Blood Count 6.4 K/mcL (4.3-11.1)
[2020-05-03 06:00] LABS: Alanine Aminotransferase 20 Units/L (7-52); Albumin 3.3 g/dL (3.5-5.7); Albumin/Globulin Ratio 1.1 (1.1-2.2); Alkaline Phosphatase 64 Units/L (34-104); Aspartate Amino Transferase 30 Units/L (13-39); BUN/Creatinine Ratio 19 (6-26); Blood Urea Nitrogen 17 mg/dL (8-23); Calcium 8.2 mg/dL (8.6-10.3); Carbon Dioxide 27 mEq/L (23-29); Chloride 91 mEq/L (98-107); Chol/HDL Ratio 1.8 (0-4.9); Cholesterol 154 mg/dL (< 200); Globulin 2.9 g/dL (2.4-3.5); Glucose 80 mg/dL (70-105); HDL Cholesterol 86 mg/dL (40-59); LDL Cholesterol,Calculated 57 mg/dL (< 100); Magnesium 1.1 mg/dL (1.6-2.6); Osmolality,Calculated 267 (280-300); Potassium 3.5 mEq/L (3.5-5.1); Sodium 128 mEq/L (136-145); Total Protein 6.2 g/dL (6.4-8.9); Triglycerides 53 mg/dL (< 150); eGFR For African Americans > 60 (> 60); eGFR For Non-African Americans > 60 (> 60)
[2020-05-03] MEDS: Nicotine 14 MG PATCH.TD24 TD SCH (08:22)
[2020-05-03] MEDS ORDERED: *HR* LORazepam 1 MG TABLET PO ONE (08:31)
[2020-05-03] MEDS ORDERED: lisinopriL 20 MG TABLET PO SCH (10:56)
[2020-05-03] MEDS: Magnesium Oxide 400 MG TABLET PO SCH (11:48)
[2020-05-03] MEDS: Famotidine 20 MG TABLET PO SCH ×3 (14:43→20:26)
[2020-05-03] MEDS: Aspirin Enteric Coated 81 MG Tablet PO SCH (14:43)
[2020-05-03] MEDS ORDERED: levoFLOXacin 750 MG/150 ML 750 MG/150 ML BAG IVPB SCH (16:00)
[2020-05-03] MEDS: *HR* LORazepam 2 MG/ML VIAL IVP PRN ×2 (17:54→20:15)
[2020-05-04] MEDS: *HR* LORazepam 1 MG TABLET PO SCH ×2 (00:03→08:41)
[2020-05-04] MEDS: 0.9 % Sodium Chloride 1,000 ML IVC SCH ×2 (02:10→12:30)
[2020-05-04] MEDS: Thiamine (B-1) 100 MG, Folic Acid 1 MG, MVI, adult with vitamin K 10 ML in 0.9 % Sodi... IVPB SCH (04:09)
[2020-05-04] MEDS: *HR* LORazepam 2 MG/ML VIAL IVP PRN ×2 (04:27→05:28)
[2020-05-04] MEDS: Nicotine 14 MG PATCH.TD24 TD SCH (08:41)
[2020-05-04] MEDS: Aspirin Enteric Coated 81 MG Tablet PO SCH (08:41)
[2020-05-04] MEDS: Famotidine 20 MG TABLET PO SCH (08:42)
[2020-05-04] MEDS: Magnesium Oxide 400 MG TABLET PO SCH (08:42)
[2020-05-04 08:53] LABS: BUN/Creatinine Ratio 13 (6-26); Blood Urea Nitrogen 13 mg/dL (8-23); Calcium 8.6 mg/dL (8.6-10.3); Carbon Dioxide 27 mEq/L (23-29); Chloride 88 mEq/L (98-107); Glucose 109 mg/dL (70-105); Magnesium 1.3 mg/dL (1.6-2.6); Osmolality,Calculated 265 (280-300); Potassium 3.3 mEq/L (3.5-5.1); Sodium 127 mEq/L (136-145); eGFR For African Americans > 60 (> 60); eGFR For Non-African Americans > 60 (> 60)
[2020-05-04] MEDS ORDERED: lisinopriL 20 MG TABLET PO SCH (09:00)
[2020-05-04] MEDS ORDERED: *HR* LORazepam 2 MG/ML VIAL IVP ONE ×3 (09:16→12:04)
[2020-05-04] MEDS ORDERED: *HR* LORazepam 2 MG/ML VIAL IVP PRN ×2 (10:38)
[2020-05-04 11:56] VITALS: BP 195/106
[2020-05-04] MEDS ORDERED: levoFLOXacin 750 MG/150 ML 750 MG/150 ML BAG IVPB SCH (16:00)
== END 2020-05-04 14:40 | disposition short-term general hospital (02) | DRG 194 ==
LOC: EMEROOPIK 12:14 → INPPIK 12:14
PROVIDERS: ADMIT Family Medicine; ATTEND Family Medicine